=== PATIENT | female | born 1960 | race Caucasian/White ===

== ENCOUNTER 2017-06-06 00:55 | Inpatient (IN) | payer MEDICAID ==
[~2017-06-06] VITALS: Ht 170.2 cm; Wt 77.5 kg
[~2017-06-06 00:55] MED LIST: ACET325T40 PO; AMLO-147 PO; ASC500 PO; FERR-55 PO
[2017-06-06 00:59] VITALS: Ht 170.2 cm; Wt 77.5 kg
[2017-06-06] MEDS ORDERED: ALBUTEROL 0.083% (NEB) 2.5 MG/3 ML AMP HHN STA (01:12)
[2017-06-06] MEDS ORDERED: LIDOCAINE/MYLANTA 40 ML BTL PO STA (01:21)
[2017-06-06] MEDS ORDERED: IPRATROPIUM (NEB) 0.5 MG/2.5 ML AMP INH ONE (01:30)
[2017-06-06 01:46] LABS: ABNORMAL IP MESSAGE 1; ADD SCAN DIFF NO; BASOPHILS % 0.3 % (0.0-2.0); EOSINOPHILS # 0.1 10^3/ul (0.0-0.5); EOSINOPHILS % 0.8 % (0.0-7.0); HEMATOCRIT 25.1 % (37.0-47.0); LYMPHOCYTES # 1.4 10^3/ul (0.8-2.9); MEAN CORPUSCULAR HEMOGLOBIN 18.2 pg (29.0-33.0); MEAN CORPUSCULAR HGB CONC 26.7 g/dl (32.0-37.0); MEAN CORPUSCULAR VOLUME 68.2 fl (82.0-101.0); MEAN PLATELET VOLUME 10.1 fl (7.4-10.4); MONOCYTE # 0.9 10^3/ul (0.3-0.9); NEUTROPHILS % 80.2 % (39.0-77.0); PLATELET COUNT 311 10^3/UL (140-415); RED BLOOD COUNT 3.68 10^6/ul (4.20-5.40); RED CELL DISTRIBUTION WIDTH 19.1 % (11.5-14.5); WHITE BLOOD COUNT 12.5 10^3/ul (4.8-10.8)
[2017-06-06 01:48] LABS: ALBUMIN 4.5 g/dl (3.3-4.9); ALBUMIN/GLOBULIN RATIO 1.28; BILIRUBIN,INDIRECT 0.7 mg/dl (0-1.1); BILIRUBIN,TOTAL 0.7 mg/dl (0.2-1.3); CALCIUM 9.3 mg/dl (8.4-10.2); CREATININE 0.75 mg/dl (0.44-1.00); POTASSIUM 3.6 mmol/L (3.5-5.1)
--- NOTE | 2017-06-06 02:44 | RADRPT ---
PROCEDURE: XR Chest. CLINICAL INDICATION: Shortness of breath. TECHNIQUE: AP Portable chest. COMPARISON: 08/28/2015 FINDINGS: There is mild cardiomegaly. The lungs are clear. The osseous structures are unremarkable. IMPRESSION: No acute findings. RPTAT: HIKT .Celestino Cook MD, Date Time Electronically viewed and signed by .Celestino Cook MD, on 06/06/2017 02:43 .T/
[2017-06-06] MEDS ORDERED: ONDANSETRON 4 MG INJ IV PRN (07:00)
[2017-06-06] MEDS ORDERED: NACL 0.9% 3 ML SYG IV SCH (07:00)
[2017-06-06 07:28] VITALS: TEMP 99
[2017-06-06] MEDS: morphine 2 MG INJ IV PRN ×2 (10:25→20:38)
[2017-06-06 10:28] VITALS: BP 141/81; PULSE 88; RESP 19
[2017-06-06 10:58] LABS: HEMOGLOBIN 6.7 g/dl (12.0-16.0)
[2017-06-06] MEDS: SOD CHLORIDE 0.9% 1,000 ML IV SCH ×2 (14:32→20:57)
[2017-06-06 14:53] VITALS: BP 183/92; RESP 21
[2017-06-06] MEDS: hydrALAzine 20 MG INJ IV PRN (14:53)
[2017-06-06] MEDS: CEFTRIAXONE 1 GM/50 ML (PMX) 50 ML IVPB SCH (16:31)
--- NOTE | 2017-06-06 16:37 | HP ---
Date/Time of Note Date/Time of Note DATE: 06/06/17 TIME: 16:26 Assessment/Plan VTE Prophylaxis VTE Prophylaxis Intervention: SCD's Lines/Catheters [facility] Per[facility] IV Urinary Cath still in place: No Assessment/Plan Chief Complaint/Hosp Course A/P: 55-year-old female with history of recurrent microcytic anemia, essential hypertension, history of noncompliance with medications, methamphetamine use, who presents with shortness of breath and weakness for 2 days, found with hemoglobin 6.7. 1. Shortness of breath: Likely secondary to patient's anemia. Again hemoglobin was 6.7. Denies any upper or lower GI bleeding. Unclear source of the patient's anemia. Her MCV is low however, 68 range. -Continue PRBC transfusion, monitor H&H every 6 hours. Monitor for any signs of any bleeding. If worsens, may need to consider hematology oncology consult at that time. Consider IV iron as well but will check iron studies first. 2. Hypertension: Blood pressure stable, continue current medications including hydralazine IV as needed greater than 160 systolic 3. History of drug use: Patient denies any use of any drugs at this time. Will educate patient about cessation, check drug screen as well 4. Former smoker: Patient says she has not smoked for the last year. Counseling on cessation, consider nicotine patch 5. GI prophylaxis: PPI 6. DVT prophylaxis: SCD's Problems: HPI/ROS Admit Date/Time Admit Date/Time Jun 06, 2017 at 05:00 Hx of Present Illness 55-year-old female with history of recurrent microcytic anemia who has had a full workup in the past with GI evaluation on previous admissions in January of 2015 and 2013 who also has been seen and evaluated by analytics senior manager/oncologist in previous hospitalization, hypertension, history of noncompliance with medications, prior methamphetamine and prescription drug abuse, former smoker, who presents with shortness of breath. Symptoms have been occurring for the last 2 days, she is also had subjective fevers as well. Denies nausea vomiting , no upper or lower GI bleeding, no diarrhea no constipation, no headaches or dizziness or loss of consciousness. Patient was last here to our hospital in December 2015 for similar anemia episode, and received blood transfusion at that time. When she came in today her hemoglobin was 6.7. She was ordered for 2 units of PRBCs which have been started as well. On her last admission in December 2015 patient was instructed that she needs to follow at [facility] or [facility] for possible bone marrow biopsy, however patient states she still has not had this follow-up performed yet. PMH/Family/Social Past Surgical History Past Surgical Hx: other () Social History Alcohol Use: none Smoking Status: Former smoker (Former [id number] smoker quit 1 year ago.) Drug Use: other (Methamphetamine) Exam/Review of Systems Vital Signs Vitals Vital Signs Date Time Temp Pulse Resp B/P Pulse Ox O2 Delivery O2 Flow Rate FiO2 06/06/17 14:53 98.2 83 21 183/92 97 06/06/17 10:49 2.0 06/06/17 10:28 Nasal Cannula Exam Exam General: Patient lying in bed answering questions appropriately, no acute distress HEENT: Pupils equal round reactive to light extraocular muscles are intact Neck: Supple Cardiovascular: S1-S2 heard regular rate rhythm, no rubs no gallops Respiratory: Clear to auscultation bilaterally GI: Nontender, nondistended, soft, no rebound or guarding, normal bowel sounds Muscular skeletal: No lower extremity edema bilaterally Neurologic: No focal deficits Labs Result Diagram: 06/06/1711506/06/17 011 Medications Medications Current Medications Sodium Chloride (NS) 1,000 ml @ 70 mls/hr [id number] IV Last administered on 06/06 14:32; Admin Dose 70 MLS/HR; Start 06/06/17 at 06:39 Ondansetron HCl (Zofran Inj) 4 mg Q6H PRN IV NAUSEA AND/OR VOMITING; Start at 07:00 Acetaminophen (Tylenol Tab) 650 mg Q6H PRN PO PAIN LEVEL 1-3 OR FEVER; Start at 07:00 Morphine Sulfate (morphine) 2 mg Q4H PRN IV SEVERE PAIN LEVEL 7-10 Last administered on 06/06/17 10:25; Admin Dose 2 MG; Start 06/06/17 at 07:00 Pantoprazole (Protonix Iv) 40 mg DAILY@06 IV ; Start 06/07/17 at 06:00 Hydralazine HCl 10 mg 10 mg Q6H PRN IV ELEVATED SYSTOLIC BP Last administered on 06/06/17 14:53; Admin Dose 10 MG; Start 06/06/17 at 15:00 Ceftriaxone Sodium (Rocephin) 50 ml @ 100 mls/hr Q24H IVPB ; Start 06/06/17 at 16:30 XU RAMIREZ Jun 06, 2017 16:36
[2017-06-06 16:53] LABS: CHOL/HDL RATIO 3.1 RATIO
[2017-06-06 17:25] LABS: THYROID STIMULATING HORMONE 0.243 MIU/L (0.465-4.680)
[2017-06-06 17:35] LABS: HEMATOCRIT 29.8 % (37.0-47.0); HEMOGLOBIN 8.9 g/dl (12.0-16.0)
[2017-06-06 20:00] VITALS: BP 155/71; RESP 19
[2017-06-06 20:44] LABS: IRON 24 ug/dl (35-150)
[2017-06-06 20:54] LABS: TOTAL IRON BINDING CAPACITY 425 ug/dl (241-421)
[2017-06-06 23:12] LABS: HEMATOCRIT 28.8 % (37.0-47.0); HEMOGLOBIN 8.4 g/dl (12.0-16.0)
[2017-06-07 00:58] LABS: HEMATOCRIT 30.9 % (37.0-47.0); HEMOGLOBIN 8.9 g/dl (12.0-16.0)
[2017-06-07 03:42] VITALS: BP 142/68; RESP 18
[2017-06-07 05:00] LABS: ADD SCAN DIFF NO
[2017-06-07 05:04] LABS: ABNORMAL IP MESSAGE 1; BASOPHILS % 0.4 % (0.0-2.0); EOSINOPHILS # 0.2 10^3/ul (0.0-0.5); EOSINOPHILS % 2.1 % (0.0-7.0); HEMATOCRIT 30.7 % (37.0-47.0); HEMOGLOBIN 8.7 g/dl (12.0-16.0); LYMPHOCYTES # 1.2 10^3/ul (0.8-2.9); LYMPHOCYTES % 11.6 % (15.0-51.0); MEAN CORPUSCULAR HEMOGLOBIN 20.5 pg (29.0-33.0); MEAN CORPUSCULAR HGB CONC 28.3 g/dl (32.0-37.0); MEAN CORPUSCULAR VOLUME 72.2 fl (82.0-101.0); MEAN PLATELET VOLUME 10.4 fl (7.4-10.4); MONOCYTE # 0.8 10^3/ul (0.3-0.9); MONOCYTES % 7.1 % (0.0-11.0); NEUTROPHIL # 8.3 10^3/ul (1.6-7.5); NEUTROPHILS % 78.4 % (39.0-77.0); PLATELET COUNT 275 10^3/UL (140-415); RED BLOOD COUNT 4.25 10^6/ul (4.20-5.40); RED CELL DISTRIBUTION WIDTH 22.1 % (11.5-14.5); WHITE BLOOD COUNT 10.6 10^3/ul (4.8-10.8)
[2017-06-07 05:29] LABS: ALBUMIN/GLOBULIN RATIO 0.94
[2017-06-07 05:52] LABS: ALBUMIN 3.4 g/dl (3.3-4.9); CREATININE 0.61 mg/dl (0.44-1.00); POTASSIUM 3.9 mmol/L (3.5-5.1)
[2017-06-07] MEDS: PANTOPRAZOLE 40 MG INJ IV SCH (06:03)
[2017-06-07] MEDS: SOD CHLORIDE 0.9% 1,000 ML IV SCH ×2 (06:05→23:07)
[2017-06-07 08:13] VITALS: BP 155/74; RESP 19
[2017-06-07] MEDS: morphine 2 MG INJ IV PRN ×2 (11:51→15:52)
[2017-06-07 14:57] VITALS: BP 190/91; RESP 20
[2017-06-07] MEDS: hydrALAzine 20 MG INJ IV PRN (14:57)
--- NOTE | 2017-06-07 15:05 | PN ---
Date/Time of Note Date/Time of Note DATE: 06/07/17 TIME: 15:03 Assessment/Plan VTE Prophylaxis VTE Prophylaxis Intervention: SCD's Lines/Catheters [facility] Type (from [facility]): Peripheral IV Urinary Cath still in place: No Assessment/Plan Chief Complaint/Hosp Course A/P: 55-year-old female with history of recurrent microcytic anemia, essential hypertension, history of noncompliance with medications, methamphetamine use, who presents with shortness of breath and weakness for 2 days, found with hemoglobin 6.7. 1. Shortness of breath: Likely secondary to patient's anemia. Again hemoglobin was 6.7 on admission, but has received blood transfusion, now hemoglobin has improved; denies any upper or lower GI bleeding. Unclear source of the patient's anemia. Her MCV was low however, 68 range. -We will start IV iron and p.o. iron supplementation, monitor for any signs of any bleeding. - If worsens, may need to consider hematology oncology consult at that time. 2. Hypertension: Blood pressure elevated, will start Norvasc. -Also will continue hydralazine IV as needed greater than 160 systolic 3. History of drug use: Patient denies any use of any drugs at this time. Will educate patient about cessation 4. Former smoker: Patient says she has not smoked for the last year. Counseling on cessation, consider nicotine patch 5. GI prophylaxis: PPI 6. DVT prophylaxis: SCD's Problems: Subjective 24 Hr Interval Summary Free Text/Dictation Patient received a blood transfusion. No acute events overnight. Exam/Review of Systems Vital Signs Vitals Vital Signs Date Time Temp Pulse Resp B/P Pulse Ox O2 Delivery O2 Flow Rate FiO2 06/07/17 14:57 98.2 84 20 190/91 92 06/07/17 09:00 2.0 06/06/17 10:28 Nasal Cannula Intake and Output 06/06/17 06/06/17 06/07/17 15:00 23:00 07:00 Intake Total 325 ml 1085 ml Balance 325 ml 1085 ml Exam General: Patient lying in bed answering questions appropriately, no acute distress HEENT: Pupils equal round reactive to light extraocular muscles are intact Neck: Supple Cardiovascular: S1-S2 heard regular rate rhythm, no rubs no gallops Respiratory: Clear to auscultation bilaterally GI: Nontender, nondistended, soft, no rebound or guarding, normal bowel sounds Muscular skeletal: No lower extremity edema bilaterally Neurologic: No focal deficits Results Result Diagram: 06/07/177 06/07/17 0447 Results 24 hrs Laboratory Tests Test 06/06/17 16:24 06/06/17 16:25 06/06/17 22:31 06/07/17 00:25 Iron Level 24 L Total Iron Binding Capacity 425 H Percent Iron Saturation 6 L Hemoglobin 8.9 #L 8.4 L 8.9 L Hematocrit 29.8 L 28.8 L 30.9 L Hemoglobin A1c 5.5 Triglycerides Level 63 Cholesterol Level 131 LDL Cholesterol, Calculated 76 HDL Cholesterol 42 Cholesterol/HDL Ratio 3.1 Thyroid Stimulating Hormone (TSH) 0.243 L Test 06/07/17 04:47 06/07/17 06:46 White Blood Count 10.6 Red Blood Count 4.25 Hemoglobin 8.7 L Hematocrit 30.7 L Mean Corpuscular Volume 72.2 L Mean Corpuscular Hemoglobin 20.5 L Mean Corpuscular Hemoglobin Concent 28.3 L Red Cell Distribution Width 22.1 H Platelet Count 275 Mean Platelet Volume 10.4 Neutrophils % 78.4 H Lymphocytes % 11.6 L Monocytes % 7.1 Eosinophils % 2.1 Basophils % 0.4 Nucleated Red Blood Cells % 0.0 Neutrophils # 8.3 H Lymphocytes # 1.2 Monocytes # 0.8 Eosinophils # 0.2 Basophils # 0.0 Nucleated Red Blood Cells # 0.0 Sodium Level 139 Potassium Level 3.9 Chloride Level 97 Carbon Dioxide Level 29 Anion Gap 17 H Blood Urea Nitrogen 7 Creatinine 0.61 Glucose Level 96 Calcium Level 9.0 Total Bilirubin 1.0 Direct Bilirubin 0.00 Indirect Bilirubin 1.0 Aspartate Amino Transf (AST/SGOT) 21 Alanine Aminotransferase (ALT/SGPT) 26 Alkaline Phosphatase 77 Total Protein 7.0 # Albumin 3.4 # Globulin 3.60 H Albumin/Globulin Ratio 0.94 Lab Scanned Report BLOOD TRANSFUSION Medications Medications Current Medications Sodium Chloride (NS) 1,000 ml @ 70 mls/hr [id number] IV Last administered on 06/07t 06:05; Admin Dose 70 MLS/HR; Start 06/06/17 at 06:39 Ondansetron HCl (Zofran Inj) 4 mg Q6H PRN IV NAUSEA AND/OR VOMITING; Start at 07:00 Acetaminophen (Tylenol Tab) 650 mg Q6H PRN PO PAIN LEVEL 1-3 OR FEVER; Start at 07:00 Morphine Sulfate (morphine) 2 mg Q4H PRN IV SEVERE PAIN LEVEL 7-10 Last administered on 06/07/17 11:51; Admin Dose 2 MG; Start 06/06/17 at 07:00 Pantoprazole (Protonix Iv) 40 mg DAILY@06 IV Last administered on 06/07/17 06: 03; Admin Dose 40 MG; Start 06/07/17 at 06:00 Hydralazine HCl 10 mg 10 mg Q6H PRN IV ELEVATED SYSTOLIC BP Last administered on 06/07/17 14:57; Admin Dose 10 MG; Start 06/06/17 at 15:00 Ceftriaxone Sodium 50 ml @ 100 mls/hr Q24H IVPB Last administered on 16:31; Admin Dose 100 MLS/HR; Start 06/06/17 at 16:30 Ferric Sodium Gluconate Complex/ Sodium Chloride (Ferrlecit/NS) 110 ml @ 100 mls/hr ONCE ONCE IVPB ; Start 06/07/17 at 16:00; Stop 06/07/17 at 17:05 Amlodipine Besylate (Norvasc) 5 mg DAILY PO ; Start 06/07/17 at 21:00 Ferrous Sulfate (Ferrous Sulfate (Ec)) 325 mg BID PO ; Start 06/07/17 at 16:00 Docusate Sodium (Colace) 100 mg BID PO ; Start 06/07/17 at 16:00 Senna (Senokot) 1 tab BID PO ; Start 06/07/17 at 16:00 XU RAMIREZ Jun 07, 2017 15:05
[2017-06-07 15:43] VITALS: BP 173/81; PULSE 83; RESP 18
[2017-06-07] MEDS: CEFTRIAXONE 1 GM/50 ML (PMX) 50 ML IVPB SCH (15:48)
[2017-06-07] MEDS ORDERED: SOD FERRIC GLUC COMPLX 125 MG in SOD CHLORIDE 0.9% 100 ML IVPB ONE (16:00)
[2017-06-07] MEDS: DOCUSATE SODIUM 100 MG CAP PO SCH ×2 (17:47→20:28)
[2017-06-07] MEDS: FERROUS SULFATE (EC) 325 MG TAB PO SCH ×2 (17:48→20:28)
[2017-06-07] MEDS: SENNA TAB PO SCH ×2 (17:52→20:28)
[2017-06-07] MEDS: ACETAMINOPHEN 325 MG TAB PO PRN (17:53)
[2017-06-07] MEDS: AMLODIPINE 5 MG TAB PO SCH (18:16)
[2017-06-07 18:17] VITALS: BP 171/82; PULSE 91
[2017-06-07 20:29] VITALS: BP 160/76; RESP 17
[2017-06-08] VITALS (12 sets, daily range): BP systolic 141–186; BP diastolic 66–89; PULSE 70–99; RESP 17–20
[2017-06-08] MEDS: hydrALAzine 20 MG INJ IV PRN ×2 (03:18→10:15)
[2017-06-08] MEDS: PANTOPRAZOLE 40 MG INJ IV SCH (05:10)
[2017-06-08] MEDS: SENNA TAB PO SCH (08:19)
[2017-06-08] MEDS: FERROUS SULFATE (EC) 325 MG TAB PO SCH (08:19)
[2017-06-08] MEDS: AMLODIPINE 5 MG TAB PO SCH (08:19)
[2017-06-08] MEDS: DOCUSATE SODIUM 100 MG CAP PO SCH (08:20)
--- NOTE | 2017-06-08 13:20 | PDOCDIS ---
Discharge Instructions CONDITION Patient Condition: Stable HOME CARE INSTRUCTIONS: Special Diet: regular ACTIVITY: Activity Restrictions: Slowly Increase Activity FOLLOW UP/APPOINTMENTS Follow-up Plan Please take your medications as prescribed. Please follow-up with your primary doctor in the clinic in 1 week. XU RAMIREZ Jun 08, 2017 13:20
[2017-06-08] MEDS ORDERED: DOCU-216 PO (13:21)
[2017-06-08] MEDS ORDERED: AMLO-145 PO (13:21)
[2017-06-08] MEDS ORDERED: FER325 PO (13:21)
--- NOTE | 2017-06-08 13:25 | DS ---
Date/Time of Note Date/Time of Note DATE: 06/08/17 TIME: 13:22 Discharge Summary Admission/Discharge Info Admit Date/Time Jun 06, 2017 at 05:00 Discharge Date/Time Discharge Diagnosis 1. Shortness of breath: Likely secondary to patient's anemia. Again hemoglobin was 6.7 on admission, but has received blood transfusion, now hemoglobin has improved 2. Hypertension: Blood pressure elevated, started on Norvasc. 3. History of drug use: Patient denies any use of any drugs at this time. Will educate patient about cessation 4. Former smoker 5. Microcytic anemia: Unclear source. Patient Condition: Stable Hospital Course 55-year-old female with history of recurrent microcytic anemia who has had a full workup in the past with GI evaluation on previous admissions in January of 2015 and 2013 who also has been seen and evaluated by hotel attendant/oncologist in previous hospitalization, hypertension, history of noncompliance with medications, prior methamphetamine and prescription drug abuse, former smoker, who presents with shortness of breath. Symptoms have been occurring for the last 2 days, she is also had subjective fevers as well. Denies nausea vomiting , no upper or lower GI bleeding, no diarrhea no constipation, no headaches or dizziness or loss of consciousness. Patient was last here to our hospital in December 2015 for similar anemia episode, and received blood transfusion at that time. When she came in today her hemoglobin was 6.7. She was ordered for 2 units of PRBCs this admission, which the patient received.. On her last admission in December 2015 patient was instructed that she needs to follow at [facility] or [facility] for possible bone marrow biopsy, however patient states she still has not had this follow-up performed yet. She was admitted to [facility] floor, again received a blood transfusion. She also received IV iron and constipation medicines. She also received iron tablets as well. She was able to ambulate, tolerated p.o. diet. She is also found with essential hypertension and started on calcium channel chase which helped control her blood pressure. She was seen by physical therapy as well. She will be discharged home today in improved condition will need to follow-up with her primary doctor in the clinic in next 1-2 weeks, is also been given strict return precautions in the event she develops any GI bleeding. At some point she will need to be referred by her primary care doctor to a hotel attendant oncologist most likely at a specialty center, for further workup of her anemia and will need most likely bone marrow biopsy then. Home Meds Active Scripts Docusate Sodium (Dok) 100 Mg Capsule, 100 MG PO BID, #60 CAP 2 Refills Prov:XU RAMIREZ 06/08/17 Ferrous Sulfate* (Ferrous Sulfate*) 325 Mg Tabec, 325 MG PO BID, #60 TAB 2 Refills Prov:XU RAMIREZ 06/08/17 Amlodipine Besylate* (Amlodipine Besylate*) 5 Mg Tablet, 5 MG PO DAILY, #30 TAB 2 Refills Prov:XU RAMIREZ 06/08/17 Discontinued Scripts Amlodipine Besylate* (Amlodipine Besylate*) 10 Mg Tablet, 5 MG PO DAILY, #30 TAB 1 Refill Prov:HOLLEY SMITH MD 01/19/16 Ascorbic Acid (Vitamin C) 500 Mg Tab, 500 MG PO BID, #60 TAB Prov:HOLLEY SMITH MD 01/19/16 Ferrous Sulfate* (Ferrous Sulfate*) 325 Mg Tablet, 325 MG PO BID for 30 Days, TAB Prov:JOAO SOARES MD 08/30/15 Acetaminophen (MAPAP) 325 Mg Tab, 650 MG PO Q6H Y for PAIN LEVEL 1-3 OR FEVER for 7 Days, TAB Prov:JOAO SOARES MD 08/30/15 Primary Care Provider Care Physician No Primary Time spent on discharge: > 30 minutes XU RAMIREZ Jun 08, 2017 13:24
[2017-06-08] MEDS ORDERED: hydrALAzine 20 MG INJ IV ONE ×2 (15:00→16:30)
[2017-06-08] MEDS: SOD CHLORIDE 0.9% 1,000 ML IV SCH (15:10)
[2017-06-08] MEDS: CEFTRIAXONE 1 GM/50 ML (PMX) 50 ML IVPB SCH (15:41)
[2017-06-08] MEDS: ACETAMINOPHEN 325 MG TAB PO PRN (15:41)
== END 2017-06-08 17:50 | disposition home or self-care (01) | DRG 812 ==
LOC: E/R 00:55 → PP2 05:00
PROVIDERS: ADMIT Family Medicine; ATTEND Family Medicine
PROC: 30233N1 Transfusion of Nonautologous Red Blood Cells into Peripheral Vein, Percutaneous Approach (ICD-10-PCS; principal; 2017-06-06)
DX: D50.9 Iron deficiency anemia, unspecified (principal); I10 Essential (primary) hypertension; F15.90 Other stimulant use, unspecified, uncomplicated; Z87.891 Personal history of nicotine dependence; Z91.14 Patient's other noncompliance with medication regimen
CPT/HCPCS: 36430; 71010; 80053; 80061; 80307; 83036; 83540; 83605; 83880; 84439; 84443; 85014; 85018; 85025; 86850; 86870; 86900; 86901; 86920; 87040; 87400; 93005; 94664; 97163; C9113; J0360; J0696; J2270; J2916; J7030; P9016

== ENCOUNTER 2018-07-18 14:23 | Emergency (ER) | END 2018-07-18 16:35 | disposition home or self-care (01) ==

== ENCOUNTER 2019-03-28 20:50 | Emergency (ER) | payer MEDICAID ==
[~2019-03-28] VITALS: Ht 170.2 cm; Wt 75.8 kg
[~2019-03-28 20:50] MED LIST changes: -ACET325T40 PO; +AMLO-145 PO; -AMLO-147 PO; -ASC500 PO; +DOCU-216 PO; +FER325 PO; -FERR-55 PO; +MECL12.574 PO
[2019-03-28 21:17] VITALS: Ht 170.2 cm; Wt 75.8 kg
[2019-03-29] MEDS ORDERED: SOD CHLORIDE 0.9% 500 ML IV STA (02:21)
[2019-03-29] MEDS ORDERED: FOLI-49 PO ×2 (02:57→13:52)
[2019-03-29] MEDS ORDERED: morphine 4 MG/ML VIAL IV ONE (03:07)
[2019-03-29] MEDS ORDERED: ONDANSETRON 4 MG INJ IV ONE (03:07)
--- NOTE | 2019-03-29 05:11 | ERD ---
ER Documentation Chief Complaint Chief Complaint generalize body weakness/tired x 4 days HPI This is a 50-year-old female generalized body weakness and tired for 4 days. Patient states she passed earlier today. No nausea vomiting or chills. No palpitations. No focal neurological complaints. Patient has history of multiple blood transfusions secondary to anemia in the past associated does feel like she may need a transfusion. ROS All systems reviewed and are negative except as per history of present illness. Medications Home Meds Active Scripts Ferrous Sulfate* (Ferrous Sulfate*) 325 Mg Tabec, 325 MG PO BID, #60 TAB 2 Refills Prov:XU RAMIREZ S. 06/08/17 Reported Medications Folic Acid* (Folic Acid*) 1 Mg Tablet, 1 MG PO DAILY, TAB 03/29/19 Discontinued Scripts Meclizine Hcl* (Antivert*) 12.5 Mg Tab, 25 MG PO Q6H PRN for DIZZINESS, #20 TAB Prov:DANIEL VENEGAS MD 07/18/18 Docusate Sodium (Dok) 100 Mg Capsule, 100 MG PO BID, #60 CAP 2 Refills Prov:XU RAMIREZ S. 06/08/17 Amlodipine Besylate* (Amlodipine Besylate*) 5 Mg Tablet, 5 MG PO DAILY, #30 TAB 2 Refills Prov:XU RAMIREZ S. 06/08/17 Allergies Allergies: Coded Allergies: No Known Allergy (Unverified , 03/29/19) PMhx/Soc History of Surgery: No Anesthesia Reaction: No Hx Neurological Disorder: No Hx Respiratory Disorders: No Hx Cardiac Disorders: Yes (HTN) Hx Psychiatric Problems: No Hx Miscellaneous Medical Probl: Yes (anemia,htn,noncompliance with meds,meth use) Hx Alcohol Use: No Hx Substance Use: No Hx Tobacco Use: No Smoking Status: Former smoker Physical Exam Vitals Vital Signs Date Temp Pulse Resp B/P (MAP) Pulse Ox O2 O2 Flow FiO2 Time Delivery Rate 03/29/19 99.1 90 15 152/86 95 Room Air 02:30 (108) 03/28/19 98.0 109 20 148/89 98 21:17 (108) Physical Exam Const: No acute distress Head: Atraumatic Eyes: Normal Conjunctiva ENT: Normal External Ears, Nose and Mouth. Neck: Full range of motion. No meningismus. Resp: Clear to auscultation bilaterally Cardio: Regular rate and rhythm, no murmurs Abd: Soft, non tender, non distended. Normal bowel sounds Skin: No petechiae or rashes Back: No midline or flank tenderness Ext: No cyanosis, or edema Neur: Awake and alert Psych: Normal Mood and Affect Result Diagram: 03/29/19 0247 03/29/19 0247 Results 24 hrs Laboratory Tests Test 03/29/19 02:47 White Blood Count 8.9 10^3/ul Red Blood Count 4.13 10^6/ul Hemoglobin 9.9 g/dl Hematocrit 32.6 % Mean Corpuscular Volume 78.9 fl Mean Corpuscular Hemoglobin 24.0 pg Mean Corpuscular Hemoglobin Concent 30.4 g/dl Red Cell Distribution Width 16.6 % Platelet Count 228 10^3/UL Mean Platelet Volume 10.0 fl Immature Granulocytes % 0.300 % Neutrophils % 64.9 % Lymphocytes % 24.2 % Monocytes % 8.3 % Eosinophils % 2.0 % Basophils % 0.3 % Nucleated Red Blood Cells % 0.0 /100WBC Immature Granulocytes # 0.030 10^3/ul Neutrophils # 5.8 10^3/ul Lymphocytes # 2.2 10^3/ul Monocytes # 0.7 10^3/ul Eosinophils # 0.2 10^3/ul Basophils # 0.0 10^3/ul Nucleated Red Blood Cells # 0.0 10^3/ul Sodium Level 142 mmol/L Potassium Level 3.5 mmol/L Chloride Level 103 mmol/L Carbon Dioxide Level 31 mmol/L Anion Gap 8 Blood Urea Nitrogen 42 mg/dl Creatinine 1.00 mg/dl Est Glomerular Filtrat Rate mL/min 57 mL/min Glucose Level 115 mg/dl Calcium Level 8.9 mg/dl Total Bilirubin 0.3 mg/dl Direct Bilirubin 0.00 mg/dl Indirect Bilirubin 0.3 mg/dl Aspartate Amino Transf (AST/SGOT) 20 IU/L Alanine Aminotransferase (ALT/SGPT) 11 IU/L Alkaline Phosphatase 73 IU/L Troponin I < 0.012 ng/ml B-Type Natriuretic Peptide 152 PG/ML Total Protein 7.7 g/dl Albumin 3.9 g/dl Globulin 3.80 g/dl Albumin/Globulin Ratio 1.02 Current Medications Medications Dose Sig/Manny Start Time Status Last (Trade) Ordered Route PRN Stop Time Admin Dose Reason Admin Sodium 500 ml @ Q1H STAT 03/29/19 DC 03/29/19 Chloride 500 mls/hr IV 02:21 03/29/19 02:53 03:20 Morphine 4 mg ONCE ONCE 03/29/19 DC 03/29/19 Sulfate IV 03:07 03/29/19 03:15 (morphine) 03:08 Ondansetron 4 mg ONCE ONCE 03/29/19 DC 03/29/19 HCl (Zofran IV 03:07 03/29/19 03:14 Inj) 03:08 Procedures/MDM EKG: Rate/Rhythm: [Normal Sinus Rhythm] QRS, ST, T-waves: [No changes consistent w/ acute ischemia] Impression: [No evidence of ischemia or arrhythmia] Chest X-ray 1V Interpreted by me: Soft Tissue: No acute abnormalities Bones: No acute abnormalities Mediastinum/Cardiac Silhouette/Lungs: [No acute abnormalities] Patient's syncopal symptoms are unstable at this time and require inpatient workup. No evidence of PE or dissection at this time but occult ischemia or fatal dysrhythmia cannot be ruled out. Departure Diagnosis: Primary Impression: Fatigue Fatigue type: unspecified Qualified Codes: R53.83 - Other fatigue Condition: Serious CARRIE HECK March 29, 2019 05:11
[2019-03-29] MEDS ORDERED: morphine 2 MG INJ IV STA (13:19)
[2019-03-29] MEDS ORDERED: AMLO5TAB4 PO (13:52)
[2019-03-29] MEDS ORDERED: FER325 PO (13:52)
--- NOTE | 2019-03-29 13:53 | PDOCDIS ---
Discharge Instructions CONDITION [id number] Patient Condition: [id number] Stable HOME CARE INSTRUCTIONS: [id number] Diet Instructions: [id number] Low Fat /Cholesterol FOLLOW UP/APPOINTMENTS Follow-up Plan Followup with your primary doctor within the next 1-2 days to ensure continued resolution of symptoms If you don't have one please let someone know, we can give you resources that may help you pick one. You may call Dr Toby Myers's office. he's accepting new patients Name, Degree: Toby Myers MD Specialty: Internal Medicine Comments: Office Address: [address] [place] [address] [place], [place] [id number] Office Office You may also call your insurance company to assign one to you. Review your medication list with your nurse before leaving and if you need new prescriptions please let your nurse know. I may have made changes to your home medications or given you new pre scriptions, please let your primary doctor know as well. Stay compliant with your medications and report any side effects to your PCP or pharmacist. Return to the ER if you have any concerns and cannot reach your doctors or call your insurance company, they usually have a nurse that can help you. VIVIANE ZUÑIGA March 29, 2019 13:53
--- NOTE | 2019-03-29 14:19 | CONS ---
DATE OF ADMISSION: 03/28/2019 DATE OF CONSULTATION: I was asked by the emergency room doctor to evaluate the patient for possible admission. HISTORY OF PRESENTING COMPLAINT: The patient presented to the emergency room, 58-year-old female. P er the ER doctor, she had complained of generalized weakness and being tired the last 4 days and conc elijah for possible syncopal episode. However when I spoke to patient, the patient denied syncopal epis ode, stated that she has been having epigastric abdominal pain still with nausea and vomiting and let hargy. She did state that she had a history of recurrent anemia. I was concerned that she may be ne eding a repeat transfusion, but she denied passing out. At this time, her abdominal pain is complete ly resolved. The patient is requesting something to eat. She is actually requesting to be discharge d after eating. She was just seen at [facility] 2 weeks ago with similar symptoms and say s that she had multiple studies including gallbladder ultrasound and even an MRI. She was treated an d discharged home as well in stable condition. Her last bowel movement was yesterday and was normal. She does not think her symptoms are secondary to constipation. At this time, she preferred to be d ischarged to follow up with her doctor as outpatient. PAST MEDICAL HISTORY: Positive only for hypertension and recurrent anemia, for which she has require d transfusion in the past. Per the documentation in the chart, the patient also has a history of int ermittent menses, but patient did not endorse this to me. PAST SURGICAL HISTORY: Denies. ALLERGIES: NO KNOWN DRUG ALLERGIES. SOCIAL HISTORY: As per above. FAMILY HISTORY: Positive of GI cancer and history of cardiac disorder. REVIEW OF SYSTEMS: A 12-point review of systems pertinent findings as per HPI. PHYSICAL EXAMINATION: GENERAL: The patient is alert, oriented, in no distress. HEENT: Head is normocephalic without evidence of trauma. Pupils are equal, round and reactive. Muc ous membranes are moist. Posterior pharynx is clear of erythema and exudate. NECK: Supple, nontender. CHEST: Clear to auscultation. Good air entry on both sides. CARDIOVASCULAR: S1, S2. No murmurs. ABDOMEN: Soft, nontender, nondistended with normoactive bowel sounds. EXTREMITIES: No lower extremity edema. SKIN: Otherwise devoid of rash or jaundice. LABORATORY VALUES: Remote toxicology screen back in 2014 was positive for amphetamines, but at this time hemoglobin is 9.9 with hypochromasia likely suggestive of chronic iron deficiency. Coag profile was unremarkable. MICROBIOLOGY: Repeat urinalysis was not done at this time. DIAGNOSTIC DATA: A chest x-ray showed no acute infiltrates, cardiomegaly and aortic sclerosis. ASSESSMENT: This is a 58-year-old female who had presented with lethargy, abdominal pain, nausea and vomiting which so far her symptoms have resolved status post emergency room workup 2 weeks ago at [facility] now requesting to be discharged home. In my opinion, the patient is stable for d ischarge for continued followup outpatient. She is recommended to see her primary care doctor as paty n as possible and continue workup if indicated. I will refill her antihypertensives and she is going to pick this up by the pharmacy. The patient also recommended to follow up on her anemic state and continue twice a day iron therapy. This has all been communicated to her in detail. Questions have been answered. Her friend was in the room who also verbalized understanding and is in agreement with the plan of care. The patient will be and discharge if she is able to tolerate a diet. Evaluation time was more than half hour. Dictated By: VIVIANE ZUÑIGA MD, BA/JJ Conf#: [id number] DID#: [id number]
[2019-03-29 15:10] VITALS: BP 149/90; PULSE 86; RESP 16
== END 2019-03-29 15:25 | disposition home or self-care (01) ==
LOC: E/R 20:50 → SUATTDRO 03-29 13:19 → E/R 03-29 15:25
PROVIDERS: ATTEND Family Medicine
DX: R53.83 Other fatigue (principal); I10 Essential (primary) hypertension; R40.2142 Coma scale, eyes open, spontaneous, at arrival to emergency department; R40.2252 Coma scale, best verbal response, oriented, at arrival to emergency department; R40.2362 Coma scale, best motor response, obeys commands, at arrival to emergency department; Z87.891 Personal history of nicotine dependence
CPT/HCPCS: 36415; 71045; 80053; 82550; 82553; 83880; 84484; 85025; 86850; 86870; 86900; 86901; 93005; 96374; 96375; 96376; J2270; J2405; J7040; Z7502; Z7610